=== PATIENT | female | born 1990 | race Caucasian/White ===

== ENCOUNTER 2019-12-15 19:12 | Emergency (ER) | payer OTHER, SELFPAY ==
--- NOTE | ~2019-12-15 | XR_ITS ---
EXAMINATION: XR chest 2V 12/15/2019 19:48 INDICATION: Left-sided chest pressure PROCEDURE: 2 view chest COMPARISON: No prior studies for comparison. FINDINGS: The lungs are clear. The cardiomediastinal silhouette is within normal limits. There are no pleural effusions. There is no pneumothorax suspected. IMPRESSION: 1: NO ACUTE CARDIOPULMONARY DISEASE. Reviewed, dictated and finalized at location A.
[2019-12-15 19:15] VITALS: BP 152/92; PULSE 91; RESP 20; TEMP 36; O2SAT 100
--- NOTE | 2019-12-15 19:19 | ECG_ITS ---
Measurements Intervals [place] Rate: 81 P: 50 DE: 147 QRS: 22 QRSD: 93 T: -1 QT: 356 QTc: 414 Interpretive Statements SINUS RHYTHM BORDERLINE ST-T WAVE ABNORMALITY- ANT/INF LEADS BASELINE ARTIFACT- I, II, AVR BORDERLINE ECG Electronically Signed On 12-16-2019 6:59:03 CDT by Catalino Smith D.O.
[2019-12-15 19:35] LABS: Basophils Absolute Auto 0.1 K/mm3 (0.0-0.1); Basophils Percent Auto 0.5 % (0.2-1.2); Eosinophils Absolute Auto 0.1 K/mm3 (0-0.3); Eosinophils Percent Auto 0.7 % (0-4.4); Hematocrit 41.4 % (37.0-47.0); Hemoglobin 13.8 g/dL (12.0-15.0); Immature Granulocyte Absolute 0.03 K/mm3 (0.00-0.031); Immature Granulocyte Percent A 0.3 % (0-0.5); Lymphocytes Absolute Auto 4.08 K/mm3 (0.9-3.2); Lymphocytes Percent Auto 38.4 % (18.3-44.2); Mean Corpuscular HGB Conc 33.3 g/dl (32-36); Mean Corpuscular Hemoglobin 30.3 pg (26-34); Mean Platelet Volume 9.2 fl (7.4-10.4); Monocytes Absolute Auto 0.9 K/mm3 (0.1-0.6); Neutrophils Absolute Auto 5.5 K/mm3 (1.3-6.7); Neutrophils Percent Auto 52.1 % (45.5-73.1); Platelet Count Result 380 k/mm3 (150-375); Red Blood Count 4.55 M/mm3 (4.2-5.4); White Blood Count 10.6 K/mm3 (4.5-10.0)
[2019-12-15 19:45] LABS: Prothrombin Time 13.3 Seconds (11.1-14.7)
[2019-12-15 19:46] LABS: Blood Urea Nitrogen 9 mg/dL (7-17); Calcium 9.5 mg/dL (8.4-10.2); Carbon Dioxide 28 mmol/L (22-30); Chloride 102 mmol/L (98-107); Estimated CRCL calculation 140 ml/min; Estimated Glomerular Filt Rate > 60; Glucose 94 mg/dL (65-105); Partial Thromboplastin Time 35.2 SECONDS (22.3-36.8); Potassium 3.7 mmol/L (3.4-5.0); Sodium 139 mmol/L (137-145)
[2019-12-15] MEDS: ASPIRIN 81 MG CHEWABLE TABLET 324 MG PO (20:45)
[2019-12-15 20:51] VITALS: BP 143/89; PULSE 81; RESP 14; O2SAT 100
[2019-12-15 21:06] VITALS: BP 150/116; PULSE 94; RESP 22; O2SAT 100
[2019-12-15 21:12] LABS: Troponin I < 0.012 ng/mL (0.000-0.034)
--- NOTE | 2019-12-15 21:17 | ED.GENADULT ---
HPI - General Adult General Chief complaint: Chest Pain Stated complaint: chest pressure, dizzy, numb Time Seen by Provider: 12/15/19 20:14 History of Present Illness HPI narrative: Patient is a 29-year-old female who presents to emergency department for evaluation of left-sided chest pain that is been present today is an aching pain of the chest worse with position and improves with belching patient has had this present for several months evaluated by primary care and scheduled to see cardiology at the beginning of January patient notes that she gets tingling in the left arm as well which is a new finding patient denies URI symptoms or other complaints has not taken anything for her symptoms and presents in no distress patient notes that her heart rate fluctuates which she has watched on her watch Related Data Allergies Allergy/AdvReac Type Severity Reaction Status Date / Time sulfamethoxazole Allergy Unknown Rash Unverified 06/05/19 10:37 trimethoprim Allergy Unknown Rash Unverified 06/05/19 10:37 Review of Systems Review of Systems: All systems reviewed & are unremarkable except as noted in HPI and below PMFSH Past Medical History Medical History (Updated 12/15/19 @ 21:20 by Papa Mccain PA-C) Fibromyalgia Exam Narrative: Exam Narrative: GENERAL: Well-appearing, well-nourished, and in no acute distress. HEAD: Normocephalic, atraumatic. EYES: PERRLA and EOMI. ENT: Nares clear, no rhinorrhea or epistaxis. Mucous membranes moist. CHEST: Clear to auscultation. No respiratory distress. No wheezes rales or rhonchi HEART: Regular rate and rhythm. No murmur heard. Normal peripheral pulses. EXTREMITIES: Normal range of motion. No edema. SKIN: Warm, dry, no rash. NEURO: No focal deficits. Alert and oriented x3. Cranial nerves II through XII grossly intact PSYCH: Normal mood and affect. Course Course Emergency Course: Patient in the room in no distress Vital Signs Vital signs: Vital Signs Temperature 96.8 F L 12/15/19 19:15 Pulse Rate 91 12/15/19 19:15 Respiratory Rate 20 12/15/19 19:15 Blood Pressure 152/92 H 12/15/19 19:15 Pulse Oximetry 100 12/15/19 19:15 Temperature 96.8 F L 12/15/19 19:15 Pulse Rate 94 12/15/19 21:06 Respiratory Rate 22 H 12/15/19 21:06 Blood Pressure 150/116 H 12/15/19 21:06 Pulse Oximetry 100 12/15/19 21:06 Medical Decision Making MDM Narrative Medical decision making narrative: Patients EKGs and labs are without significant high risk changes. Cardiac risk factors were reviewed. Patient is felt likely to be low risk for ACS and reasonable for further risk stratification testing as an outpatient. Pain was not sudden or maximal in onset without tearing or ripping. quality. No other signs or symptoms to suggest aortic dissection. A low-risk Wells criteria is noted. PE is felt to be unlikely. No pneumonia or URI symptoms were seen on evaluation today. Patient is felt to b reasonable for continued evaluation as an outpatient. Patient did not want to stay for a no other troponin Vital Signs Vital Signs: Vital Signs Temperature 96.8 F L 12/15/19 19:15 Pulse Rate 91 12/15/19 19:15 Respiratory Rate 20 12/15/19 19:15 Blood Pressure 152/92 H 12/15/19 19:15 Pulse Oximetry 100 12/15/19 19:15 Temperature 96.8 F L 12/15/19 19:15 Pulse Rate 94 12/15/19 21:06 Respiratory Rate 22 H 12/15/19 21:06 Blood Pressure 150/116 H 12/15/19 21:06 Pulse Oximetry 100 12/15/19 21:06 Lab Data Result diagrams: 12/15/19 19:28 12/15/19 19:29 Labs: Lab Results 12/15/19 12/15/19 12/15/19 Range/Units 19:28 19:29 19:29 WBC 10.6 H (4.5-10.0) K/mm3 RBC 4.55 (4.2-5.4) M/mm3 Hgb 13.8 (12.0-15.0) g/dL Hct 41.4 (37.0-47.0) % MCV 91.0 (80-100) fl MCH 30.3 (26-34) pg MCHC 33.3 (32-36) g/dl RDW 12.0 (11.5-14.5) % Plt Count 380 H (150-375) k/mm3 MPV 9.2 (7.4-10.4) fl Immature Gran
== END 2019-12-15 21:35 | disposition home or self-care (01) ==
PROVIDERS: Emergency Medicine; Emergency Provider Emergency Medicine
DX: R07.89 Other chest pain (principal); R94.31 Abnormal electrocardiogram [ECG] [EKG]
CPT/HCPCS: 36415; 71046; 80048; 84484; 85025; 85610; 85730; 93005; 99284; A9270

== ENCOUNTER 2025-06-12 16:50 | Emergency (ER) | payer OTHER, SELFPAY ==
--- NOTE | 2025-06-12 16:52 | ED_ITS ---
HPI - Ear Problem General Chief complaint: Ear Stated complaint: R ear pain Time Seen by Provider: 06/12/25 17:06 Source: patient, RN notes reviewed and old records reviewed Mode of arrival: ambulatory Limitations: no limitations History of Present Illness HPI Narrative: 34-year-old female presents to the [facility] with complaints of pressure and pain to the right ear that started this morning. Denies any other symptoms. Denies fevers. History of eustachian tube dysfunction Related Data Home Medications ?Medication ?Instructions ?Recorded ?Confirmed ?Last Taken ?Type dextroamphetamine-amphetamine 15 15 mg PO DAILY 06/12/25 Unknown History mg tablet (Adderall) multivitamin 1 tablet PO DAILY 07/17/20 0 06/12/25 Unknown History spironolactone 100 mg tablet 100 mg PO DAILY 07/17/20 06/12/25 Unknown History doxycycline hyclate 20 mg tablet 20 mg PO Q12H 5 06/12/25 Unknown History minoxidil 2.5 mg tablet 1.25 mg PO DAILY 06/12/25 Unknown History norethindrone (contraceptive) 0.35 0.35 mg PO DAILY 06/12/25 Unknown History mg tablet (Kailyn) tirzepatide (weight loss) 7.5 7.5 mg subcut WEEKLY 05/2906/12/25 Unknown History mg/0.5 mL subcutaneous pen injector (Zepbound) Allergies Allergy/AdvReac Type Severity Reaction Status Date / Time sulfamethoxazole Allergy Unknown Rash Verified 06/12/25 16:58 trimethoprim Allergy Unknown Rash Verified 06/12/25 16:58 Review of Systems Review of Systems: All systems reviewed & are unremarkable except as noted in HPI and below Constitutional: Constitutional: Reports no additional constitutional complaints ENT: Reports as per HPI Cardiovascular: Cardiovascular: Reports no additional cardiovascular complaints, Denies chest pain and Denies dyspnea Respiratory: Respiratory: Reports no additional respiratory complaints, Denies chest congestion, Denies cough and Denies dyspnea Musculoskeletal: Musculoskeletal: Reports no additional musculoskeletal co mplaints Integumentary/Breasts: Skin/Breast: Reports system reviewed and no additional complaints, except as docu PMFSH Past Medical History Medical History THOMAS positive Fibromyalgia (~2016) Fibromyalgia Head ache Family History Family History Mother Rheumatoid arthritis Fibromyalgia Sjogren's syndrome Raynauds syndrome Spondylitis Father High cholesterol GERD (gastroesophageal reflux disease) Family hx of prostate cancer Hx of migraines Grandparent Hypertension Sjogren's syndrome Pancreatic cancer Arthritis Grandparent Lung cancer Grandparent Breast cancer Grandparent Alcoholism Sibling Thoracic outlet syndrome Social History Social History Smoking status: Never smoker Alcohol intake: current Substance use: never Comments At the time of my signature, I reviewed and agree with the nursing past medical, surgical, social, and family history. There is no relevant family history pertinent to the patient complaint. Exam Const: General: cooperative, healthy appearing, comfortable, no acute distress, well developed, alert and well nourished Nutritional Appearance: well nourished Orientation/consciousness: patient oriented x3 Limitations: no limitations HENMT: Head: normal to inspection Ears: hearing grossly normal bilaterally, external ears normal, TM normal on the left, mastoids normal, no periauricular adenopathy and TM abnormal bulging on the right and with fluid behind the TM on the right Throat: abnormal tonsil on the right crypts (With stone at the most lower part of the right tonsil) Eyes: General: appearance normal, both eyes and all related structures Alignment and Position: alignment normal Neck: Neck: normal visual inspection, full ROM, no lymphadenopathy and no meningeal signs Chest: Chest palpation & inspection: normal inspection of the chest Resp: Effort & Inspection: normal respiratory effort and able to speak in complete sentences Auscultation: clear to auscultation bilaterally, no crackles, no rales, no rhonchi and no wheezes Cardio: Rate: regular rate Skin: General skin exam: normal color and no rashes or lesions noted Neuro: General: patient oriented x3, gait normal, moves all extremities and no meningeal signs Cognition (Neuro): normal cognition Speech: normal speech Gait exam (Neuro): Normal gait present Extrem: General: normal to inspection, full ROM, capillary refill normal and normal gait Psych: Appearance: grossly normal and well kempt Mental Status: mental status grossly normal Speech and movement: Normal speech and movement present and Clear speech present Affect: normal affect Attitude: cooperative Course Course Level of Care: Express Care Visit Vital Signs Vital signs: Vital Signs Temperature 97.7 F 06/12/25 16:56 Pulse Rate 73 06/12/25 16:56 Respiratory Rate 16 06/12/25 16:56 Blood Pressure 122/86 06/12/25 16:56 Pulse Oximetry 100 06/12/25 16:56 Oxygen Delivery Room Air 06/12/25 16:56 Temperature 97.7 F 06/12/25 16:56 Pulse Rate 73 06/12/25 16:56 Respiratory Rate 16 06/12/25 16:56 Blood Pressure 122/86 06/12/25 16:56 Pulse Oximetry 100 06/12/25 16:56 Oxygen Delivery Room Air 06/12/25 16:56 Reviewed Medical Decision Making MDM Narrative Medical decision making narrative: Patient presents with 1 day history of right ear discomfort. Clear fluid noted behind TM without loss of landmarks. Patient with no other acute findings except for a right tonsil stone. Patient appropriate for outpatient treatment with close follow-up. Discharge instructions reviewed with patient, as well as provided in writing per nursing staff. The instructions also include specific and strict return/GO TO THE ER as well as f/u information. All questions have been answered, and the patient deny any further questions with discharge and discharge plan. Some parts of this dictation were generated by voice recognition software and may contain typographical and/or grammatical inaccuracies. Differential Diagnosis Differential Diagnosis: Otitis media, serous otitis, otitis externa Medical Records Medical records reviewed: Yes I reviewed the external patient's medical records. Vital Signs Vital Signs: Vital Signs Temperature 97.7 F 06/12/25 16:56 Pulse Rate 73 06/12/25 16:56 Respiratory Rate 16 06/12/25 16:56 Blood Pressure 122/86 06/12/25 16:56 Pulse Oximetry 100 06/12/25 16:56 Oxygen Delivery Room Air 06/12/25 16:56 Temperature 97.7 F 06/12/25 16:56 Pulse Rate 73 06/12/25 16:56 Respiratory Rate 16 06/12/25 16:56 Blood Pressure 122/86 06/12/25 16:56 Pulse Oximetry 100 06/12/25 16:56 Oxygen Delivery Room Air 06/12/25 16:56 Reviewed Lab Data Lab results reviewed: Yes I reviewed the patient's lab results. Labs: Reviewed Critical Care Time Critical Care Time Critical Care Time: No Discharge Plan Discharge Clinical Impression: Tonsil stone Acute serous otitis media of right ear Qualifiers: Recurrence: recurrent Qualified Code(s): H65.04 - Acute serous otitis media, recurrent, right ear Patient Disposition: Home Condition: Stable Instructions: Fluid In The Ear (Serous Otitis Media) (ED) Additional Instructions: For the fluid behind the ear you can take the steroid pack as prescribed Use Flonase twice a day Take allergy medication such as Claritin or Zyrtec daily Follow-up with ENT, phone number has been given to you Follow-up with primary care provider You can take steps to prevent tonsil stones: ? [place] and floss regularly. Make sure to brush the front and back of your ton cindy, too. ? Gargle with salt water after eating. ? Stay hydrated by drinking plenty of water. If you have tonsil stones, these at-home remedies can help: ? A warm saltwater gargle helps with swelling and discomfort. Gargling can even help dislodge the stone. Try a gargle of 1 teaspoon salt mixed with 8 ounces of water. ? [place] and floss regularly. Patient Language: Bengali Prescriptions: New methylprednisolone [Medrol (Jarrod)] 4 mg tablets,dose pack See Rx Instructions PO .COMPLEX Qty: 21 0RF Rx Instructions: orally per package directions No Action doxycycline hyclate 20 mg tablet 20 mg PO Q12H norethindrone (contraceptive) [Kailyn] 0.35 mg tablet 0.35 mg PO DAILY Zepbound 7.5 mg/0.5 mL pen injector 7.5 mg SUBCUT WEEKLY minoxidil 2.5 mg tablet 1.25 mg PO DAILY spironolactone 100 mg tablet 100 mg PO DAILY multivitamin Tablet 1 tablet PO DAILY dextroamphetamine-amphetamine [Adderall] 15 mg tablet 15 mg PO DAILY Follow-up/Referrals: Osvaldo García MD [Physician, Ear, Nose, Throat] UNKNOWN,DOCTOR [Primary Care Provider] Stand Alone Forms: Work/School Release IP Time of Disposition: 17:22
[2025-06-12 16:56] VITALS: BP 122/86; PULSE 73; RESP 16; TEMP 36.5; O2SAT 100
== END 2025-06-12 17:28 | disposition home or self-care (01) ==
PROVIDERS: Emergency Provider Nurse Practitioner
DX: J35.8 Other chronic diseases of tonsils and adenoids (principal); H65.04 Acute serous otitis media, recurrent, right ear; M79.7 Fibromyalgia
CPT/HCPCS: 99213; G0463